=== PATIENT | male | born 1995 | race Caucasian/White ===

== ENCOUNTER 2016-08-13 19:49 | Emergency (ER) | payer OTHER ==
--- NOTE | ~2016-08-13 | CR172 ---
[facility] A Service of [facility] & [facility] RADIOLOGY TEXT RESULTS PATIENT: MICHAEL VILLATORO LOCATION: CFTX : 95 UNIT #: [id number] AGE: [address]: SE DURAN APRN SEX: M ORDER DR: [id number] [facility] [address] [place], [place] [address] [id number] E MR#: [id number] Acc #: [id number] NAME: MICHAEL VILLATORO. : 1995 SEX: M STUDY DATE/TIME: 08/13/2016 20:38 UNIT: [facility] ROOM: STUDY DESCRIPTION: CR Knee 3 Views Lt Attending Physician: Se Duran Aprn Ordering Physician: Se Duran Aprn Primary Care Physician: No Primary Care Physician MEDICAL IMAGING REPORT This report is preliminary unless electronic signature is present EXAM Left knee, 3 views, 08/13/2016. HISTORY Left knee pain and swelling, injured 08/12/2016, lifting a heavy object. FINDINGS Three views of the left knee demonstrate no fracture. There is a large knee joint effusion. The bones are normally mineralized and the joint space is normally maintained. IMPRESSION Large knee joint effusion. No evidence of fracture. Dictated by... Jaydon Santa M.D. THIS IS AN ELECTRONICALLY VERIFIED REPORT Jaydon Santa M.D. at 08/15/2016 6:20 AM CORINA/alyssa TD: 08/14/2016 15:56 JOB #: [id number] MEDICAL IMAGING REPORT Page 1 of 1 COPY
[~2016-08-13 19:49] MED LIST: LOMOTIL TABLET1 TAB PO; PHENERGAN25 MG PO; ZANTAC150 MG PO
== END 2016-08-13 22:15 | disposition home or self-care (01) ==
LOC: CED 19:49 → CFTX 19:49
DX: M25.462 Effusion, left knee (principal); J45.909 Unspecified asthma, uncomplicated; F17.210 Nicotine dependence, cigarettes, uncomplicated; X58.XXXA Exposure to other specified factors, initial encounter; Y92.008 Other place in unspecified non-institutional (private) residence as the place of occurrence of the external cause
CPT/HCPCS: 29505; 73562; 99283